=== PATIENT | male | born 1945 ===

== ENCOUNTER 2024-08-16 06:41 | Day surgery (SDC) | payer OTHER, SELFPAY ==
[2024-08-16] VITALS (9 sets, daily range): BP systolic 94–174; BP diastolic 55–82; BMI 28.9
[2024-08-16] MEDS: NSS 251 ML IV (07:46)
--- NOTE | 2024-08-16 07:56 | ITS.CL.CATH ---
Cut Out Marker - Catheterization
Cardiac Catheterization
Procedure Report:
LEFT AND RIGHT HEART CATHETERIZATION
Date of Procedure: August 16, 2024
Referring: Jordan Senior
PROCEDURES:
1. Left heart catheterization, coronary angiogram.
2. Moderate sedation.
3. Right heart catheterization
INDICATION: Elie is a 78-year-old gentleman with hypertension, hyperlipidemia, moderate to severe aortic stenosis with concern for possible severe aortic stenosis and a mean transaortic gradient of 40 mmHg on most recent echocardiogram in May
2024 now being referred for left and right heart catheterization in the setting of new dyspnea on exertion
ACCESS: 1. Left radial artery, 6Fr. sheath, under US guidance. Right radial artery access was attempted however we could not successfully advance sheath into the vessel and therefore a radial band was placed and the access was aborted.
2. Right common femoral artery, 6 Qatari sheath, under ultrasound guidance
HEMODYNAMICS : (mmHg)
RA (m) : 15
RV (s/d,m) : 40/12, 17
PA (s/d, m) : 40/20, 28
PCWP (m) : 28
PA saturation: 69.4% on room air
AO saturation: 96.6% on room air
RA saturation: 68.4% on room air
Cardiac Output : 4.65 L/min by Deepak calculation
Cardiac Index : 2.30 L/min/m-2 by Deepak calculation
Systemic vascular resistance: 1341 dsc^(-5)
Pulmonary vascular resistance: 1.50 calderon unit
AO (s/d) : 125/59
LVEDP : 26
Mean transaortic invasive gradient 18 to 20 mmHg, aortic valve area 1.32 cm� consistent with moderate aortic stenosis.
CORONARY FINDINGS
Dominance: Right
Left Main Trunk (LMT): Large caliber vessel that gives rise to the LAD and LCx branches and is free of angiographic disease.
Left Anterior Descending Artery (LAD): Large caliber vessel that gives off 2 major diagonal branches as it courses along the anterior inter-ventricular groove before wrapping around the cardiac apex. The LAD and its branches are free of
angiographic disease.
Left Circumflex Artery (LCx): Large caliber vessel that gives off 3 major obtuse marginal (OM) branches as it courses along the atrio-ventricular (AV) groove. The LCx and its branches are free of angiographic disease. Previously placed OM stent
is widely patent.
Right Coronary Artery (RCA): Medium caliber dominant vessel with a high anterior takeoff that gives rise to the posterior descending artery (RPDA) and postero-lateral ventricular (RPLV) branches distally. Proximal RCA has a smooth 30% stenosis
proximal to previously placed stent which is widely patent.
SEDATION: 57 minutes of procedural sedation was utilized. IV Midazolam and IV Fentanyl were administered. An independent medical director of hospice was present to assist with and help manage the patient's level of consciousness and physiologic status.
RADIATION SUMMARY: Fluoro Time (min): 12.7 dose (mGy): 451 DAP (Gy.cm2) : 25.7
Closure Device: There were no immediate intra-procedural complications. The sheath was pulled in the garage laborer and a vascular-band applied to the right wrist for radial artery hemostasis using the patent hemostasis technique.
CONCLUSIONS
1. No obstructive coronary artery disease.
2. Elevated right and left-sided filling pressures with normal cardiac output.
3. Mean transaortic invasive gradient 18 to 20 mmHg, aortic valve area 1.32 cm� consistent with moderate aortic stenosis.
RECOMMENDATIONS
1. Wean radial band per protocol. Monitor right hand perfusion and for bleeding from the radial site following removal of the vascular-band following trans-radial access.
2. Continue aggressive medical therapy and risk factor modification for secondary CAD prevention. Continue surveillance of moderate aortic stenosis.
3. Hydrate with normal saline to mitigate the risk of contrast-induced acute kidney injury.
4. Follow-up with Dr. Jordan Senior
Yola Garcia MD, [facility], [facility]
[2024-08-16 08:10] LABS: Hematocrit 42.6 % (39.0-52.0); Hemoglobin 14.2 g/dL (13.0-18.0); Mean Corp Hgb Conc. 33.3 g/dL (33.0-37.0); Mean Corpuscular Volume 88.0 fL (80.0-94.0); Platelet Count 261 10^3/uL (130-400); Red Cell Dist. Width 13.5 % (11.5-14.5)
[2024-08-16 08:35] LABS: Blood Urea Nitrogen 18 mg/dl (9-20); Calcium 9.2 mg/dl (8.4-10.2); Carbon Dioxide 27 mmol/L (22-30); Chloride 106 mmol/L (98-107); Estimated Creatinine Clearance 71 ml/min; Glucose 100 mg/dl (70-99); Potassium 4.5 mmol/L (3.5-5.1); Sodium 138 mmol/L (135-145); eGFR > 60.00
[2024-08-16] MEDS: LASIX 20 MG IV (12:32)
== END 2024-08-16 14:56 | disposition home or self-care (01) ==
LOC: CATH 06:41
PROVIDERS: ATTENDING PHYSICIAN Internal Medicine Interventional Cardiology; FAMILY PHYSICIAN Physician Assistant Medical
DX: I35.0 Nonrheumatic aortic (valve) stenosis (principal); E78.5 Hyperlipidemia, unspecified; I10 Essential (primary) hypertension; I25.10 Atherosclerotic heart disease of native coronary artery without angina pectoris; I25.2 Old myocardial infarction; I48.0 Paroxysmal atrial fibrillation
CPT/HCPCS: 99152; 99153; 80048; 85027; 93005; 93460; C1894; Q9967